=== PATIENT | female | born 1985 | race Caucasian/White ===

== ENCOUNTER → 2018-08-08 | Emergency (ER) | payer OTHER ==
[~2018-08-08] VITALS: Ht 165.1 cm; Wt 60.0 kg
[~2018-08-08] MED LIST: AVIANE1 EACH PO; NORCO 5-325 TA1 EACH PO; PRENA1 TRUE CO1 EACH PO
== END ==
LOC: ED 01:36
DX: R10.31 Right lower quadrant pain (principal); F17.200 Nicotine dependence, unspecified, uncomplicated
CPT/HCPCS: 74177; 80053; 81001; 84703; 85025; 96361; 96374; 96375; 99284-25; J1885; J2270; J2405; J7030; Q9967

== ENCOUNTER 2025-01-17 17:47 | Emergency (ER) | payer OTHER ==
[~2025-01-17] VITALS: Ht 165.1 cm; Wt 66.0 kg
[2025-01-17 20:18] VITALS: BP 138/91
== END 2025-01-17 20:18 | disposition home or self-care (01) ==
LOC: ED 17:47
DX: S90.32XA Contusion of left foot, initial encounter (principal); W55.12XA Struck by horse, initial encounter; F17.200 Nicotine dependence, unspecified, uncomplicated
CPT/HCPCS: 73630; 99283